=== PATIENT | female | born 1970 | race Caucasian/White ===

== ENCOUNTER 2017-07-01 15:50 | Day surgery (SDC) | payer OTHER ==
[2017-07-01] MEDS ORDERED: PROPOFOL 20 ML (16:26)
[2017-07-01] MEDS ORDERED: LIDOCAINE 2% (SDV) 5 ML INJ (16:26)
[2017-07-01] MEDS ORDERED: MIDAZOLAM 1 MG/ML 2 ML INJ (16:27)
[2017-07-01] MEDS ORDERED: FENTAnyl 50 MCG/ML VIAL (16:27)
== END 2017-07-01 18:07 | disposition home or self-care (01) ==
LOC: GIL 15:50
DX: R19.4 Change in bowel habit (principal); K21.9 Gastro-esophageal reflux disease without esophagitis; K29.70 Gastritis, unspecified, without bleeding; B96.81 Helicobacter pylori [H. pylori] as the cause of diseases classified elsewhere; D12.6 Benign neoplasm of colon, unspecified; K64.8 Other hemorrhoids; I10 Essential (primary) hypertension
CPT/HCPCS: 43239; 87081; 88305